=== PATIENT | male | born 1940 | race Caucasian/White ===

== ENCOUNTER → 2016-12-29 | Outpatient (CLI) | payer OTHER ==
[~2016-12-29] VITALS: Ht 177.8 cm; Wt 76.7 kg
[~2016-12-29] MED LIST: ATEN25TA PO; FLOM5CAP PO; LIDOCAINE VISCOUS 2% SOLN 15ML UDC As Ordered ONE; MIDAZOLAM INJ 2 MG/2 ML VIAL (J2250) As Ordered ONE; NS 1,000 ML IV SCH; XARE10TA PO; fentaNYL 100 MCG/2 ML INJECTION (J3010) As Ordered ONE; hydrALAZINE INJ 20 MG/ML VIAL As Ordered ONE
[2016-12-29 10:13] VITALS: BP 132/77
--- NOTE | 2016-12-30 09:15 | RO ---
DATE OF STUDY: 12/29/2016 INDICATION: Mitral insufficiency. PROCEDURE: Transesophageal echocardiogram. SURGEON: Dai Paul MD BRIEF HISTORY: Mr. Locke is very pleasant 76-year-old man who has known chronic atrial fibrillation and also known combined aortic and mitral valve disease. Based on transthoracic echocardiogram, the mitral valve insufficiency did not look particularly severe, but the orientation of MR jet was very eccentric; and consequently, it was my feeling that he may have potentially severe mitral insufficiency. He has been complaining about gradually progressive exertional dyspnea; and consequently, we decided to proceed with transesophageal echocardiogram (CYNTHIA). I explained the nature of the procedure prior to his scheduled date. He did sign appropriate consent. He presented for the procedure in fasting condition. PROCEDURE NOTE: The study was performed in endoscopy suite. The patient was positioned in standard fashion. Time-out was obtained. His posterior pharynx was anesthetized using viscous lidocaine and Cetacaine spray. He was sedated with total 4 mg of intravenous (IV) Versed and 25 mcg of IV fentanyl. When appropriate level sedation was accomplished, probe was introduced into the esophagus and later stomach without difficulty in left lateral position. After appropriate images were obtained, it was withdrawn. There were no immediate complications, and the patient tolerated the procedure well. FINDINGS: Left ventricle has normal systolic function. Of note, the patient is in atrial fibrillation during the study. Right ventricle also appears to be normally contractile. There is severe biatrial enlargement. Left atrial appendage is large and free of thrombus. There is no convincing systolic flow reversal in left-sided or right-sided pulmonary veins based on a pulse wave Doppler. By color Doppler imaging, there appears to be at least some flow into the right-sided pulmonary veins during systole. Atrial septum demonstrates a small patent foramen ovale (PFO) with [id number]-gdffw shunt that was well demonstrated by color Doppler imaging. There is no evidence for [id number] shunt based on injection of agitated saline. Pulmonic valve was poorly visualized. There is approximately mild pulmonic insufficiency. Tricuspid valve appears normal. Only minimal tricuspid insufficiency seen. Calculated pulmonary artery pressure is normal based on fair quality Doppler imaging. Aortic valve is tricuspid. It looks structurally intact with only minimal sclerosis. No stenosis is noted. Mobility is fully preserved. There is approximately mild or maybe mild to moderate insufficiency of the valve. Mitral valve has normal mobility. There is a prolapse of anterior mitral leaflet; and on a few images, it appears that there is a rupture of some small cord. By color Doppler imaging, there is severe mitral insufficiency with several MR jets. Some of them are oriented centrally, but one of them is very eccentric. Consequently, the evaluation of severity is somewhat subjective, but based on color Doppler imaging, I am convinced that there is severe mitral insufficiency. No pericardial effusion is noted. Thoracic aorta exhibits prominent atherosclerosis, but there are no large ulcers and no dissection. CONCLUSIONS: 1. Preserved left ventricle (LV) systolic function. 2. 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 3. Fsjt-ev-aerlglha aortic insufficiency. 4. Patent foramen ovale with mqui-gw-zfynf shunt. 5. Atherosclerosis of thoracic aorta. PLAN: Is to pursue coronary angiogram and right- and left-sided heart catheterization with referral for mitral valve repair likely to follow. I discussed this extensively with the patient, his , and his daughter.
== END | disposition home or self-care (01) ==
LOC: M OPP 07:50
PROVIDERS: ATTEND Internal Medicine Cardiovascular Disease
DX: I34.1 Nonrheumatic mitral (valve) prolapse (principal); I35.1 Nonrheumatic aortic (valve) insufficiency; I25.10 Atherosclerotic heart disease of native coronary artery without angina pectoris; I10 Essential (primary) hypertension; Z97.8 Presence of other specified devices; I48.91 Unspecified atrial fibrillation; R06.09 Other forms of dyspnea; N40.1 Benign prostatic hyperplasia with lower urinary tract symptoms; Z79.899 Other long term (current) drug therapy
CPT/HCPCS: 93312; 93320; 93325; J2250; J3010

== ENCOUNTER 2020-12-19 11:08 | Observation (INO) | payer MEDICARE ==
[~2020-12-19] VITALS: Ht 177.8 cm; Wt 77.7 kg
[~2020-12-19 11:08] MED LIST changes: +FLOM0.4C39 PO; -FLOM5CAP PO; -LIDOCAINE VISCOUS 2% SOLN 15ML UDC As Ordered ONE; -MIDAZOLAM INJ 2 MG/2 ML VIAL (J2250) As Ordered ONE; -NS 1,000 ML IV SCH; -fentaNYL 100 MCG/2 ML INJECTION (J3010) As Ordered ONE; -hydrALAZINE INJ 20 MG/ML VIAL As Ordered ONE
[2020-12-19] MEDS ORDERED: ATOR1TAB21 PO (11:23)
[2020-12-19] MEDS ORDERED: WARF-58 PO (11:23)
[2020-12-19] MEDS ORDERED: FURO40TA2 PO (11:23)
[2020-12-19] MEDS ORDERED: WARF4TAB52 PO (11:23)
[2020-12-19] MEDS ORDERED: FAMO40TA3 PO (11:23)
[2020-12-19] MEDS ORDERED: TAMS1CAP17 PO (11:23)
--- NOTE | 2020-12-19 11:53 | REP ---
INDICATION: Syncope COMPARISON: None. TECHNIQUE: Axial noncontrast images from the skull base to the thoracic inlet with coronal reformations. This CT examination was performed using the following dose reduction techniques: Automated exposure control, adjustment of mA and/or kv according to the patient's size, and use of iterative reconstruction technique. FINDINGS: Age-related atrophy and microvascular ischemic changes are appreciated. The ventricles and sulci are symmetric. Morfin-white differentiation is maintained. There is no evidence for acute intracranial hemorrhage, mass/mass effect, pathology or infarction. No extra-axial fluid collection. Calvarium is intact. Paranasal sinuses and mastoid air cells are clear. IMPRESSION: Age related atrophy and microvascular ischemic changes. No acute intracranial hemorrhage, infarction, or mass/mass effect. <Electronically signed by Douglas Valera > 12/19/20 [id number]
[2020-12-19 12:37] LABS: BASO % 0.7 % (0.0-1.0); EOS # 0.1 10^3/uL (0.0-0.5); EOS % 1.6 % (0.0-3.0); HEMATOCRIT 29.4 % (42.0-52.0); HEMOGLOBIN 9.6 g/dl (13.5-17.5); LYMPH # 1.2 10^3/uL (1.5-5.0); LYMPH % 20.5 % (24.0-44.0); MEAN CORPUSCULAR HEMOGLOBIN 31.6 pg (27.0-33.0); MEAN CORPUSCULAR HGB CONC 32.7 g/dl (32.0-36.5); MEAN CORPUSCULAR VOLUME 96.7 fl (80.0-96.0); MONO # 0.7 10^3/uL (0.0-0.8); MONO % 12.5 % (2.0-8.0); NEUTROPHILS # 3.6 10^3/uL (1.5-8.5); NEUTROPHILS % 64.3 % (36.0-66.0); PLATELET COUNT, AUTOMATED 169 10^3/uL (150-450); RED BLOOD COUNT 3.04 10^6/uL (4.30-6.10); WHITE BLOOD COUNT 5.6 10^3/uL (4.0-10.0)
[2020-12-19 12:52] LABS: INR 2.42; PROTHROMBIN TIME 26.9 SECONDS (12.5-14.3)
[2020-12-19 12:53] LABS: PARTIAL THROMBOPLASTIN TIME 38.3 SECONDS (24.2-38.5)
[2020-12-19 13:07] LABS: BLOOD UREA NITROGEN 24 MG/DL (7-18); CALCIUM LEVEL 8.5 MG/DL (8.8-10.2); CARBON DIOXIDE LEVEL 34 MEQ/L (21-32); CHLORIDE LEVEL 102 MEQ/L (98-107); CK-MB VALUE MASS < 1.0 NG/ML (<3.6); CPK CREATINE PHOSPHOKINASE 63 U/L (39-308); CREATININE FOR GFR 1.13 MG/DL (0.70-1.30); GLOMERULAR FILTRATION RATE > 60.0 (>35); GLUCOSE, FASTING 88 MG/DL (70-100); MB/CK RELATIVE INDEX 1.59 (< OR =4); NT-PRO BNP 2031 PG/ML (<450); POTASSIUM SERUM 3.6 MEQ/L (3.5-5.1); SODIUM LEVEL 141 MEQ/L (136-145); TROPONIN I < 0.02 NG/ML (< 0.10)
--- NOTE | 2020-12-19 14:00 | REP ---
INDICATION: SOB COMPARISON: None. TECHNIQUE: Portable AP view of the chest FINDINGS: Cardiomegaly and evidence for prior sternotomy and CABG. Lung ballesteros are clear. No consolidation, effusion, or pneumothorax. Skeletal structures intact. IMPRESSION: Cardiomegaly. No focal consolidation or effusion. <Electronically signed by Douglas Valera > 12/19/20 [id number]
[2020-12-19] MEDS ORDERED: ISOVUE-370 76% 100ML VIAL As Ordered ONE (14:33)
--- NOTE | 2020-12-19 15:01 | REP ---
INDICATION: SOB; r/o PE COMPARISON: None. TECHNIQUE: Axial contrast enhanced images from the thoracic inlet to the upper abdomen using pulmonary embolus technique with multiplanar re-formations. 75 ml Isovue 370 intravenous contrast material administered without complication. This CT examination was performed using the following dose reduction techniques: Automated exposure control, adjustment of mA and/or kv according to the patient's size, and use of iterative reconstruction technique. FINDINGS: Satisfactory enhancement of the pulmonary vasculature is achieved and no filling defects are identified to suggest pulmonary embolus. Further evaluation of the mediastinum demonstrates atherosclerotic changes to the thoracic aorta without aneurysm or obvious dissection. Cardiomegaly is appreciated along with evidence for prior mitral valve repair and atherosclerotic changes to the coronary arteries. No pericardial effusion. The bilateral lung ballesteros are well aerated and clear without consolidation pleural effusion or pneumothorax. Tracheobronchial tree is patent. No significant nodule or mass lesion is identified. Incidental calcified granuloma in the right lower lobe noted. No adenopathy noted. Surrounding musculoskeletal structures intact IMPRESSION: No evidence for pulmonary embolus. No acute mediastinal or pleural parenchymal process. Cardiomegaly. <Electronically signed by Douglas Valera > 12/19/20 [id number]
[2020-12-19 16:17] LABS: APPEARANCE, URINE CLEAR (CLEAR); BACTERIA, URINE AUTO NEGATIVE (NEGATIVE); BILIRUBIN, URINE AUTO NEGATIVE (NEGATIVE); BLOOD, URINE BLOOD 1+ (NEGATIVE); COLOR, URINE STRAW (YELLOW); GLUCOSE, URINE (UA) AUTO NEGATIVE (NEGATIVE); KETONE, URINE AUTO NEGATIVE (NEGATIVE); LEUKOCYTE ESTERASE, URINE AUTO NEGATIVE (NEGATIVE); NITRITE, URINE AUTO NEGATIVE (NEGATIVE); PROTEIN, URINE AUTO NEGATIVE (NEGATIVE); RBC, URINE AUTO 1 /HPF (0-3); SPECIFIC GRAVITY URINE AUTO 1.028 (1.002-1.035); SQUAMOUS EPITHELIAL CELL UR AU 0 /HPF (0-6); UROBILINOGEN, URINE AUTO 0.2 mg/dL (0.0-2.0); WBC, URINE AUTO 0 /HPF (0-3)
[2020-12-19] MEDS ORDERED: NS 500 ML IV ONE (16:50)
[2020-12-19] MEDS ORDERED: NS 1,000 ML IV SCH (16:50)
[2020-12-19] MEDS ORDERED: WARFARIN SOD 4MG TAB PO SCH (17:00)
[2020-12-19] MEDS ORDERED: FINA5TAB2 PO (17:32)
[2020-12-19] MEDS ORDERED: METO1TAB32 PO (17:32)
[2020-12-19] MEDS ORDERED: ACETAMINOPHEN TAB 650MG DOSE (2X325MG) PO PRN (17:35)
[2020-12-19] MEDS ORDERED: WARFARIN SOD 5MG TAB PO SCH (17:35)
[2020-12-19 17:39] LABS: RSV AMPLIFICATION NEGATIVE (NEGATIVE)
[2020-12-19] MEDS ORDERED: ATORVASTATIN 20 MG TAB PO SCH (18:00)
[2020-12-19] MEDS ORDERED: FAMOTIDINE 20 MG TAB PO SCH (18:00)
--- NOTE | 2020-12-19 18:12 | HPEPDOC ---
[facility] Medical History & Physical Date of Admission December 19, 2020 Date of Service: December 19, 2020 Attending Physician: MARYAN VITALE MD History and Physical CHIEF COMPLAINT: SOB, dizziness with position change HISTORY OF PRESENT ILLNESS: 80 yo M with a history of CAD s/p 2 vessel CABG + porcine mitral valve replacement on warfarin, chronic Afib, CHF unclear subtype at this time, patient of Dr. Paul, HTN, HLD, BPH, recently seeing Dr. Beltran for episodic hematuria who presented to the ED for SOB and dizziness with position changes for 2 days. In the ED he was hemodynamically stable, in Afib, rate controlled well, saturating well on room air. EKG showed Afib without ST segment changes, troponin was negative, telemetry has been shorting rate controlled Afib with rates in the high 50s to 60s, WBC 5.6, Hgb 9.6 (but do not have other labs to compare at this time), platelets 169, Na 141, K 3,6, BUN 24, Cr 1.13, INR 2.42, proBNP 2030, while CXR was grossly unremarkable and CTA chest showed clear lung ballesteros, cardiomegaly and no pulmonary emboli. He was mildly orthostatic and was given 500cc bolus of fluid and started on fluids at 125cc/hr. On ROS, he denied an recent fever, chills, some night sweating but no drenching night sweats, no chest pain, palpitations, abdominal pain, peripheral edema, recent travel, sick contacts, N/V/D/constipation, dysuria. He does report some episodic farzad hematuria that Dr. Beltran is working up outpatient. 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 Paul, HTN, HLD, BPH, recently seeing Dr. 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 REVIEW OF SYSTEMS: 10 point ROS was negative except as noted in the HPI. HOME MEDICATIONS: Please see below. PHYSICAL EXAMINATION: VITAL SIGNS: see below GENERAL APPEARANCE: Elderly, NAD HEENT: NCAT, EOMI, MMM CARDIOVASCULAR: Systolic murmur, irregularly irregular LUNGS: CTAB throughout ABDOMEN: normoactive sounds, soft, NTND EXTREMITIES: WWP, no LE edema, 2+ DP pulses NEUROLOGICAL: AOx3, CN2-12 intact, moving all extremities, grossly nonfocal. PSYCHIATRIC: AOx3 LABORATORY DATA and IMAGING: summarized above. Please see below for full details MICROBIOLOGY: Please see below. ASSESSMENT: 80 yo M with a history of CAD s/p 2 vessel CABG + porcine mitral valve repl acement on warfarin, chronic Afib, CHF unclear subtype at this time, patient of Dr. Paul, HTN, HLD, BPH, recently seeing Dr. Beltran for episodic hematuria who presented to the ED for SOB and dizziness with position changes for 2 days and found to have mild anemia though chronicity is unclear and Hgb of 9.6 would unlikely produce dizziness and SOB to his degree and also orthostatic with possible dehydration despite elevated proBNP as he is clinically euvolemic. PLAN: SOB, dizziness with orthostasis: -No vertigo, associated with position change and noted orthostatic vitals -got 500cc in the ED of NS and now on 125cc/hr for 8 hours -repeat orthostatics in the morning -telemetry -will order TTE with none in the EMR and history of CHF on home lasix with elevated proBNP yet euvolemic with clear clear chest -No PE or PNA on CTA -hold ACEi and borderline bradycardic, will reduce metop 25 BID tartrate to 25 QD succinate -PT/OT -fall precautions -No evidence of ACS per non-ischemic EKG, negative trop -strict I/Os -daily weights Chronic Afib: -continue warfarin -continue metop at reduced dose per above -on telemetry HTN: -hold ACEi, reduce metop 25 BID to daily per above CHF, subtype unclear at this time -hold home lasix while dizzy and orthostatic -hold ACEi, reduce metop per above -TTE Procine mitral valve: -continue daily warfarin -check INR daily Episodic hematuria: -Will call Dr. Beltran to get perspective of history and findings so far before decision to officially consult Anemia: -check Fe, TIBC, B12, folate, retic -daily H/H DVT ppx: warfarin Dispo: medsurg, with remote tele Vital Signs Vital Signs Date Time Temp Pulse Resp B/P (MAP) Pulse Ox O2 Delivery O2 Flow Rate FiO2 5/28/21 17:08 50 99 12/19/20 17:01 117/53 (74) 12/19/20 14:53 16 Room Air 12/19/20 11:10 96.6 Laboratory Data Labs 24H Laboratory Tests 2 12/19/20 12:18: Immature Granulocyte % (Auto) 0.4, Neutrophils (%) (Auto) 64.3, Lymphocytes (%) (Auto) 20.5L, Monocytes (%) (Auto) 12.5H, Eosinophils (%) (Auto) 1.6, Basophils (%) (Auto) 0.7, Neutrophils # (Auto) 3.6, Lymphocytes # (Auto) 1.2L, Monocytes # (Auto) 0.7, Eosinophils # (Auto) 0.1, Basophils # (Auto) 0.0, Nucleated Red Blood Cells % (auto) 0.0, Prothrombin Time 26.9H, Prothromb Time International Ratio 2.42, Activated Partial Thromboplast Time 38.3, Anion Gap 5L, Glomerular Filtration Rate > 60.0, Calcium Level 8.5L, Total Creatine Kinase 63, Creatine Kinase MB < 1.0, Creatine Kinase MB Relative Index 1.59, Troponin I < 0.02, PY-Jta-Q-Type Natriuretic Peptide 2031H, Thyroid Stimulating Hormone (TSH) 1.400 12/19/20 16:01: Urine Color STRAW, Urine Appearance CLEAR, Urine pH 7.0, Urine Specific [place] 1.028, Urine Protein NEGATIVE, Urine Glucose (Auto)(UA) NEGATIVE, Urine Ketones (Auto) NEGATIVE, Urine Blood 1+H, Urine Nitrite NEGATIVE, Urine Bilirubin NEGATIVE, Urine Urobilinogen 0.2, Urine Leukocyte Esterase (Auto) NEGATIVE, Urine WBC (Auto) 0, Urine RBC (Auto) 1, Urine Hyaline Casts (Auto) 0, Urine Bacteria (Auto) NEGATIVE, Urine Squamous Epithelial Cells 0, Urine Sperm (Auto) 12/19/20 16:27: Coronavirus (COVID-19)(PCR) NEGATIVE, Influenza Type A (RT-PCR) NEGATIVE, Influenza Type B (RT-PCR) NEGATIVE, Respiratory Syncytial Virus (PCR) NEGATIVE CBC/BMP Laboratory Tests 12/19/20 12:18 Home Medications Scheduled Atorvastatin Calcium (Atorvastatin Calcium) 20 Mg Tablet, 20 MG PO DAILY AFTERNOON Famotidine (Famotidine) 40 Mg Tablet, 40 MG PO DAILY AFTERNOON Finasteride (Finasteride) 5 Mg Tablet, 5 MG PO DAILY Furosemide (Furosemide) 40 Mg Tablet, 40 MG PO DAILY Metoprolol Succinate (Metoprolol Succinate) 25 Mg Tab.er.24h, 25 MG PO BID Tamsulosin HCl (Flomax) 0.4 Mg Cap, 0.4 MG PO DAILY Warfarin Sodium (Warfarin Sodium) 3 Mg Tablet, 3 MG PO DAILY TAKE WITH 1MG. TOTAL OF 4MG DAILY Warfarin Sodium (Warfarin Sodium) 1 Mg Tablet, 1 MG PO DAILY TAKE WITH 3MG. TOTAL OF 4MG DAILY Allergies Coded Allergies: No Known Allergies (Unverified , 12/27/16) A-FIB/CHADSVASC A-FIB History Current/History of A-Fib/PAF?: Yes Current PO Anticoag Therapy: Yes Age/Risk Factor Scoring CHADSVASC: CHADSVASC Response (Comments) Value Age Risk Factor Age >/= 75 years old 2 Gender Risk Factor Male 0 Hx of CHF Yes 1 Hx of HTN Yes 1 Hx of Stroke/TIA/or VTE No 0 Hx of Diabetes No 0 Total 4 Treatment Treatment ordered: Warfarin MARYAN VITALE MD December 19, 2020 18:12
[2020-12-19 20:12] VITALS: BP 129/65
[2020-12-19] MEDS ORDERED: FINASTERIDE 5 MG TAB PO SCH (21:00)
[2020-12-20 06:00] VITALS: BP 120/58
[2020-12-20 06:41] LABS: HEMOGLOBIN 8.3 g/dl (13.5-17.5); MEAN CORPUSCULAR HEMOGLOBIN 31.3 pg (27.0-33.0); MEAN CORPUSCULAR HGB CONC 31.9 g/dl (32.0-36.5); MEAN CORPUSCULAR VOLUME 98.1 fl (80.0-96.0); PLATELET COUNT, AUTOMATED 138 10^3/uL (150-450); RED BLOOD COUNT 2.65 10^6/uL (4.30-6.10); WHITE BLOOD COUNT 4.3 10^3/uL (4.0-10.0)
[2020-12-20 06:55] LABS: INR 2.43
[2020-12-20 07:26] LABS: BLOOD UREA NITROGEN 21 MG/DL (7-18); CALCIUM LEVEL 7.9 MG/DL (8.8-10.2); CARBON DIOXIDE LEVEL 30 MEQ/L (21-32); CHLORIDE LEVEL 110 MEQ/L (98-107); CREATININE FOR GFR 0.96 MG/DL (0.70-1.30); GLOMERULAR FILTRATION RATE > 60.0 (>35); GLUCOSE, FASTING 90 MG/DL (70-100); MAGNESIUM LEVEL 2.3 MG/DL (1.8-2.4); SODIUM LEVEL 143 MEQ/L (136-145)
--- NOTE | 2020-12-20 08:50 | ECGEPIP ---
[facility] - ED Test Date: 2020-12-19 Pat Name: MARIBEL GRIFFITH Department: Room: - Gender: Male Director Of Sales Marketing: evelina : 1940 Requested By: Felecia Garcia Order Number: [id number] Reading MD: Felecia Garcia Measurements Intervals [place] Rate: 64 P: [place]: QRS: -5 QRSD: 96 T: 19 QT: 442 QTc: 455 Interpretive Statements Atrial fibrillation Inferior infarct , age undetermined prwp NSTTW abnormalities No prior Electronically Signed on 12-20-2020 8:50:06 EDT by Felecia Garcia
[2020-12-20] MEDS ORDERED: METOPROLOL SUCC *XL* 25MG TAB (TopROL *XL*) PO SCH (09:00)
[2020-12-20] MEDS ORDERED: TAMSULOSIN 0.4 MG CAP PO SCH (09:00)
[2020-12-20] MEDS ORDERED: METO1TAB32 PO (10:21)
[2020-12-20] MEDS ORDERED: FURO40TA2 PO (11:12)
--- NOTE | 2020-12-20 11:21 | DS.PDOC ---
Discharge Summary General Date of Admission December 19, 2020 at 17:35 Date of Discharge 12/20/2020 Attending Physician: MARYAN VITALE MD Discharge Summary PROCEDURES PERFORMED DURING STAY: None ADMITTING DIAGNOSES: Dyspnea Orthostasis Weakness DISCHARGE DIAGNOSES: Dizziness with orthostasis i/s/o dehydration and low hydration intake Likely symptomatic bradycardia i/s/o simran blockage therapy with noted transient pauses Anemia likely with element of nutritional deficiency, likely NEIL i/s/o episodic hematuria Chronic Afib Mitral valvulopathy s/p remote porcine valve replacement on warfarin CAD s/p remote 2v CABG HTN chronic CHF, unclear subtype at time of discharge HTN HLD BPH Chronic intermittent hematuria COMPLICATIONS/CHIEF COMPLAINT: Dyspnea,Orthostasis,Weakness. 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 Paul, HTN, HLD, BPH, recently seeing Dr. Beltran for episodic hematuria who presented to the ED for SOB and dizziness with position changes for 2 days. HOSPITAL COURSE: In the ED he was hemodynamically stable, in Afib, rate controlled well, saturating well on room air. EKG showed Afib without ST segment changes, troponin was negative, telemetry showed rate controlled Afib with rates in the high 50s to 60s, WBC 5.6, Hgb 9.6 (without any prior noted labs to compare to), platelets 169, Na 141, K 3,6, BUN 24, Cr 1.13, INR 2.42, proBNP 2030, while CXR was grossly unremarkable and CTA chest showed clear lung ballesteros, cardiomegaly and no pulmonary emboli. He was orthostatic and was given 500cc bolus of fluid and started on fluids at 125cc/hr. On ROS, he denied an recent fever, chills, some night sweating but no drenching night sweats, no chest pain, palpitations, abdominal pain, peripheral edema, recent travel, sick contacts, N/V/D/constipation, dysuria. He does report some episodic farzad hematuria that Dr. Beltran is working up outpatient. Overnight he was noted to be bradycardic while in A fib and had 3 separate, asymptomatic 2 sec pauses. I called Dr. Jessica who was covering cardiology and we agreed that I would reduce his toprol from 50mg QD to 25 mg Q48H and he was safe to discharge home if all other matters were stable and would follow up in cardiology promptly. With regard to the orthostasis, it resolved after hydration and his dizziness also resolved. His Hgb went down, likely dilutional to 8.3 but day 2 AM without noted hematuria during this admission. His anemia studies are pending. He had a repeat official EKG that continued to show Afib, rate controlled with a rate of 67 without noted heart block. He is now being discharged home with plan for prompt cardiology and PCP follow up. I have strongly encouraged him to stay hydrated and will keep him on his furosemide 40mg PO changed from daily to Q2D. Of note TTE was ordered and performed but was not read by the time of discharge. DISCHARGE MEDICATIONS: Please see below. ALLERGIES: Please see below. PHYSICAL EXAMINATION ON DISCHARGE: VITAL SIGNS: Please see below. GENERAL APPEARANCE: Elderly, NAD HEENT: NCAT, EOMI, MMM CARDIOVASCULAR: Systolic murmur, irregularly irregular LUNGS: CTAB throughout ABDOMEN: normoactive sounds, soft, NTND EXTREMITIES: WWP, no LE edema, 2+ DP pulses NEUROLOGICAL: AOx3, CN2-12 intact, moving all extremities, grossly nonfocal. PSYCHIATRIC: AOx3 LABORATORY DATA: Please see below. IMAGING: CTA chest: Satisfactory enhancement of the pulmonary vasculature is achieved and no filling defects are identified to suggest pulmonary embolus. Further evaluation of the mediastinum demonstrates atherosclerotic changes to the thoracic aorta without aneurysm or obvious dissection. Cardiomegaly is appreciated along with evidence for prior mitral valve repair and atherosclerotic changes to the coronary arteries. No pericardial effusion. The bilateral lung ballesteros are well aerated and clear without consolidation pleural effusion or pneumothorax. Tracheobronchial tree is patent. No significant nodule or mass lesion is identified. Incidental calcified granuloma in the right lower lobe noted. No adenopathy noted. Surrounding musculoskeletal structures intact IMPRESSION: No evidence for pulmonary embolus. No acute mediastinal or pleural parenchymal process. Cardiomegaly. CXR: Cardiomegaly and evidence for prior sternotomy and CABG. Lung ballesteros are clear. No consolidation, effusion, or pneumothorax. Skeletal structures intact. IMPRESSION: Cardiomegaly. No focal consolidation or effusion. CT head: Age-related atrophy and microvascular ischemic changes are appreciated. The ventricles and sulci are symmetric. Morfin-white differentiation is maintained. There is no evidence for acute intracranial hemorrhage, mass/mass effect, pathology or infarction. No extra-axial fluid collection. Calvarium is intact. Paranasal sinuses and mastoid air cells are clear. IMPRESSION: Age related atrophy and microvascular ischemic changes. No acute intracranial hemorrhage, infarction, or mass/mass effect. PROGNOSIS: Good ACTIVITY: As tolerated DIET: Regular DISCHARGE PLAN: Home with close cardiology and PCP follow up DISPOSITION: Home DISCHARGE INSTRUCTIONS: Reduce metoprolol succinate from 50mg QD to 25 Q48H and closely follow up with cardiology, PCP and urology. ITEMS TO FOLLOWUP ON ON OUTPATIENT: Bradycardia with episodic transient pauses on beta gricelda therapy Dehydration, however with a history of CHF on lasix, reduced to 40mg Q48H Episodic hematuria - follows with urology Anemia DISCHARGE CONDITION: Stable TIME SPENT ON DISCHARGE: 34 minutes. Vital Signs/I&Os Vital Signs Date Time Temp Pulse Resp B/P (MAP) Pulse Ox O2 Delivery O2 Flow Rate FiO2 12/20/20 06:00 98.0 62 20 120/58 (78) 95 Room Air l I&O- Last 24 Hours up to 6 AM 12/20/20 06:00 Intake Total 775 ml Output Total 320 ml Balance 455 ml Laboratory Data Labs 24H Laboratory Tests 2 12/19/20 12:18: Immature Granulocyte % (Auto) 0.4, Neutrophils (%) (Auto) 64.3, Lymphocytes (%) (Auto) 20.5L, Monocytes (%) (Auto) 12.5H, Eosinophils (%) (Auto) 1.6, Basophils (%) (Auto) 0.7, Neutrophils # (Auto) 3.6, Lymphocytes # (Auto) 1.2L, Monocytes # (Auto) 0.7, Eosinophils # (Auto) 0.1, Basophils # (Auto) 0.0, Nucleated Red Blood Cells % (auto) 0.0, Prothrombin Time 26.9H, Prothromb Time International Ratio 2.42, Activated Partial Thromboplast Time 38.3, Anion Gap 5L, Glomerular Filtration Rate > 60.0, Calcium Level 8.5L, Total Creatine Kinase 63, Creatine Kinase MB < 1.0, Creatine Kinase MB Relative Index 1.59, Troponin I < 0.02, CU-Jxd-T-Type Natriuretic Peptide 2031H, Thyroid Stimulating Hormone (TSH) 1.400 12/19/20 16:01: Urine Color STRAW, Urine Appearance CLEAR, Urine pH 7.0, Urine Specific [place] 1.028, Urine Protein NEGATIVE, Urine Glucose (Auto)(UA) NEGATIVE, Urine Ketones (Auto) NEGATIVE, Urine Blood 1+H, Urine Nitrite NEGATIVE, Urine Bilirubin NEGATIVE, Urine Urobilinogen 0.2, Urine Leukocyte Esterase (Auto) NEGATIVE, Urine WBC (Auto) 0, Urine RBC (Auto) 1, Urine Hyaline Casts (Auto) 0, Urine Bacteria (Auto) NEGATIVE, Urine Squamous Epithelial Cells 0, Urine Sperm (Auto) 12/19/20 16:27: Coronavirus (COVID-19)(PCR) NEGATIVE, Influenza Type A (RT-PCR) NEGATIVE, Influenza Type B (RT-PCR) NEGATIVE, Respiratory Syncytial Virus (PCR) NEGATIVE 12/20/20 06:12: Nucleated Red Blood Cells % (auto) 0.0, Prothrombin Time 27.0H, Prothromb Time International Ratio 2.43, Anion Gap 3L, Glomerular Filtration Rate > 60.0, Calcium Level 7.9L, Magnesium Level 2.3 CBC/BMP Laboratory Tests 12/19/20 12:18 12/20/20 06:12 Discharge Medications Scheduled Atorvastatin Calcium (Atorvastatin Calcium) 20 Mg Tablet, 20 MG PO DAILY, (Reported) AFTERNOON Famotidine (Famotidine) 40 Mg Tablet, 40 MG PO DAILY, (Reported) AFTERNOON Finasteride (Finasteride) 5 Mg Tablet, 5 MG PO DAILY, (Reported) Furosemide (Furosemide) 40 Mg Tablet, 40 MG PO DAILY, (Reported) Metoprolol Succinate (Metoprolol Succinate) 25 Mg Tab.er.24h, 25 MG PO Q2D Tamsulosin HCl (Flomax) 0.4 Mg Cap, 0.4 MG PO DAILY, (Reported) Warfarin Sodium (Warfarin Sodium) 3 Mg Tablet, 3 MG PO DAILY, (Reported) TAKE WITH 1MG. TOTAL OF 4MG DAILY Warfarin Sodium (Warfarin Sodium) 1 Mg Tablet, 1 MG PO DAILY, (Reported) TAKE WITH 3MG. TOTAL OF 4MG DAILY Allergies Coded Allergies: No Known Allergies (Unverified , 12/27/16) MARYAN VITALE MD December 20, 2020 11:21
[2020-12-20 11:31] LABS: FERRITIN 73 NG/ML (26-388); IRON (FE) 44 UG/DL (65-175); PERCENT SATURATION 16.8 % (19.7-50.0); TOTAL IRON BINDING CAPACITY 262 UG/DL (250-450)
[2020-12-20] MEDS ORDERED: FERR325T3 PO (14:47)
--- NOTE | 2020-12-20 17:13 | ECGEPIP ---
[facility] Test Date: 2020-12-20 Pat Name: MARIBEL GRIFFITH Department: Room: [place] [address] Gender: Male Keyboard Teacher: ARIEL : 1940 Requested By: MARYAN Staples Order Number: [id number] Reading MD: Umesh Valero Measurements Intervals [place] Rate: 53 P: [place]: QRS: -5 QRSD: 96 T: 5 QT: 440 QTc: 412 Interpretive Statements Atrial fibrillation with slow ventricular response Low voltage QRS throughout Incomplete right bundle branch block Possible inferior infarct , age undetermined No significant change when compared to prior tracing of 12/19/2020 Electronically Signed on 12-20-2020 17:12:55 EDT by Umesh Valero
--- NOTE | 2020-12-23 09:51 | ECHO ---
ECHOCARDIOGRAM DATE OF PROCEDURE: 12/20/2020 Age: 80 Gender: Male Height: Not recorded Weight: Not recorded PATIENT LOCATION: Inpatient [address] [place], Room 4220. REFERRING PHYSICIAN: Claire Lagunas M.D. INDICATION: Presyncope/atrial fibrillation/mitral valve replacement. MEASUREMENTS: 2D Measurements: RV 5.4 cm LV 5.5 cm Septum 1.1 cm Posterior wall 1.1 cm Aortic Root 3.6 cm Ascending aorta 3.7 cm LA 5.7 cm LVEF 45% Doppler Measurements: AV 1.46 m/s LVOT 1.25 m/s LVOT diameter 2.3 cm MV-E 202 Pressure halftime 95 msec Mean MV diastolic gradient 7 mmHg MVA 2.3 cm2 PV 0.7 m/s Pulmonary artery acceleration time 71 msec RVSP 71 mmHg IVC 2.0 cm COMMENTS: Underlying atrial fibrillation with controlled ventricular response. No intraventricular conduction disturbance. M-mode and two-dimensional echocardiography was performed with pulse, continuous wave, color flow, and tissue Doppler studies. Left ventricular size upper limits of normal with normal wall thickness. Septal wall motion abnormality believed to be related to right ventricular pressure overload. Other left ventricular wall segments appear to be move normally. Prominently dilated left atrium (unable to comment on LV diastolic function in light of mitral valve disorder). Prominently dilated right heart chambers with right ventricular free wall hypokinesis and Doppler evidence of severe pulmonary hypertension. IVC size upper limits of normal in size with absent respiratory collapse in keeping with an elevated central venous pressure. Normal aortic diameters. Moderate aortic valvular sclerosis without stenosis, but moderately severe insufficiency. Bioprosthetic mitral valve with adequate cusp separation and no apparent insufficiency. Doppler assessment confirms appropriate bioprosthetic function. Normal appearing tricuspid valve with moderately severe to severe insufficiency. No apparent intracardiac mass or pericardial effusion. MTDD
[2020-12-23 10:35] LABS: FOLATE 9.9 NG/ML; VITAMIN B12 LEVEL 251 PG/ML
== END 2020-12-20 14:25 | disposition home or self-care (01) ==
LOC: M ED 11:08 → M ED INP 17:35 → ENRESERV 19:39 → M MSPAV 20:10
PROVIDERS: ADMIT Internal Medicine; ATTEND Internal Medicine
DX: R42 Dizziness and giddiness (principal); E86.0 Dehydration; R00.1 Bradycardia, unspecified; D50.9 Iron deficiency anemia, unspecified; I48.20 Chronic atrial fibrillation, unspecified; Z79.01 Long term (current) use of anticoagulants; Z79.899 Other long term (current) drug therapy; I10 Essential (primary) hypertension; I25.10 Atherosclerotic heart disease of native coronary artery without angina pectoris; Z95.1 Presence of aortocoronary bypass graft; E78.49 Other hyperlipidemia; N40.0 Benign prostatic hyperplasia without lower urinary tract symptoms; R31.0 Gross hematuria
CPT/HCPCS: 36415; 70450; 71045; 71275; 80048; 81001; 82550; 82553; 82607; 82728; 82746; 83550; 83735; 83880; 84443; 84484; 85025; 85027; 85046; 85610; 85730; 87631; 93005; 93041; 93306; 94760; 96360; 96361; 99285; G0378; Q9967

== ENCOUNTER 2021-01-12 10:42 | Inpatient (IN) | payer MEDICARE ==
[2021-01-12] VITALS (10 sets, daily range): BP systolic 91–112; BP diastolic 51–65
[~2021-01-12] VITALS: Ht 172.7 cm; Wt 77.5 kg
[~2021-01-12 10:42] MED LIST changes: +ATOR1TAB21 PO; +FAMO40TA3 PO; +FERR325T3 PO; +FINA5TAB2 PO; +FURO40TA2 PO; +METO1TAB32 PO; +TAMS1CAP17 PO; +WARF-58 PO; +WARF4TAB52 PO
--- NOTE | 2021-01-12 12:00 | REP ---
INDICATION: DYSPNEA/COUGH. COMPARISON: 12/19/2020. TECHNIQUE: Single portable AP view of the chest was performed. FINDINGS: Cardiomegaly is again noted. There is no acute infiltrate or pulmonary edema. There is mild calcification and tortuosity of the thoracic aorta. The mediastinal silhouette is unchanged. Multiple sternal wires mediastinal clips are present. IMPRESSION: No acute pulmonary disease.Cardiomegaly. <Electronically signed by Horacio Morfin > 01/12/21 [id number]
[2021-01-12 12:07] LABS: BASO % 0.4 % (0.0-1.0); EOS % 0.7 % (0.0-3.0); LYMPH # 0.9 10^3/uL (1.5-5.0); LYMPH % 15.7 % (24.0-44.0); MEAN CORPUSCULAR HEMOGLOBIN 31.3 pg (27.0-33.0); MEAN CORPUSCULAR HGB CONC 30.2 g/dl (32.0-36.5); MEAN CORPUSCULAR VOLUME 103.7 fl (80.0-96.0); MONO # 0.6 10^3/uL (0.0-0.8); MONO % 10.2 % (2.0-8.0); NEUTROPHILS # 4.1 10^3/uL (1.5-8.5); NEUTROPHILS % 72.1 % (36.0-66.0); PLATELET COUNT, AUTOMATED 175 10^3/uL (150-450); RED BLOOD COUNT 1.63 10^6/uL (4.30-6.10); WHITE BLOOD COUNT 5.6 10^3/uL (4.0-10.0)
[2021-01-12 12:13] LABS: HEMATOCRIT 16.9 % (42.0-52.0)
[2021-01-12 12:16] LABS: HEMOGLOBIN 5.1 g/dl (13.5-17.5)
[2021-01-12 12:47] LABS: ALBUMIN 2.9 GM/DL (3.2-5.2); BILIRUBIN,DIRECT 0.2 MG/DL (0.0-0.2); BILIRUBIN,TOTAL 0.3 MG/DL (0.2-1.0); THYROID STIMULATING HORMONE 1.14 uIU/ML (0.358-3.740); THYROXINE (T4) 7.5 UG/DL (4.5-12.0); TOTAL PROTEIN 5.4 GM/DL (6.4-8.2)
[2021-01-12] MEDS ORDERED: FERR1TAB8 PO (14:16)
[2021-01-12] MEDS ORDERED: ASPI81TA26 PO (14:16)
[2021-01-12] MEDS ORDERED: METO1TAB32 PO (14:16)
[2021-01-12] MEDS ORDERED: FURO40TA2 PO (14:16)
--- NOTE | 2021-01-12 15:11 | HPEPDOC ---
General Date of Admission Jan 12, 2021 Date of Service: Jan 12, 2021 Chief Complaint The patient is a 80-year-old male admitted with a reason for visit of SOB. Source: Patient, Family History of Present Illness Mr. Adler is an 80 year old male with CAD s/p 2 vessel CABG, porcine mitral valve, and atrial fibrillation previously on warfarin who is here with worsening dyspnea with exertion, lightheadedness, and dark tarry stool. Patient's says that initially patient had an episode of hematuria and was admitted 2 weeks ago for symptomatic anemia. On discharge, patient reports discontinuing Warfarin. Since discharge, patient has been having dark tarry stools, lighth eadedness with blurry vision, and dyspnea with exertion. Symptoms progressively worsened. Patient was scheduled for scopes on Tuesday, but patient was too weak to drink the bowel prep. Patient was taken to the ED for evaluation. while here, he was found to have a hemoglobin of 5.9. Otherwise, patient's vital signs have been stable. He reports lightheadedness when sitting up or standing with accompanied blurry vision. He reports dyspnea and weakness. Patient was consented to 2u of pRBC by the ED provider. I consulted general surgery, Dr. Valdez for scope. Anticipating scope for Tuesday. Patient will be admitted for suspected upper GI bleed secondary to warfarin use. Home Medications Scheduled Aspirin (Aspirin EC) 81 Mg Tablet.dr, 81 MG PO DAILY, (Reported) Atorvastatin Calcium (Atorvastatin Calcium) 20 Mg Tablet, 20 MG PO DAILY, (Reported) AFTERNOON Famotidine (Famotidine) 40 Mg Tablet, 40 MG PO DAILY, (Reported) AFTERNOON Ferrous Sulfate (Ferrous Sulfate) 325 Mg Tablet, 325 MG PO DAILY, (Reported) Finasteride (Finasteride) 5 Mg Tablet, 5 MG PO DAILY, (Reported) Furosemide (Furosemide) 40 Mg Tablet, 40 MG PO DAILY, (Reported) Metoprolol Succinate (Metoprolol Succinate) 25 Mg Tab.er.24h, 25 MG PO DAILY, (Reported) Tamsulosin HCl (Flomax) 0.4 Mg Cap, 0.4 MG PO DAILY, (Reported) Allergies Coded Allergies: No Known Allergies (Unverified , 12/27/16) Past Medical History Medical History 1. CAD s/p 2 vessel CABG 2. Porcine mitral valve 3. Chronic atrial fibrillation previously on warfarin 4. CHF with EF 45% 5. HTN 6. HLD 7. BPH Surgical History 1. 2 vessel CABG 2. Porcine mitral valve 3. Cholecystectomy Family History Father: History of heart disease Mother: History of heart disease Social History * Smoker: former Smoker Alcohol: rarely Drugs: denies A-FIB/CHADSVASC A-FIB History Current/History of A-Fib/PAF?: Yes Current PO Anticoag Therapy: Yes Review of Systems Constitutional: Denies: Chills, Fever Eyes: Reports: Other (Blurry vision when lightheaded) ENT: Denies: Sore Throat Skin: Denies: Rash Pulmonary: Reports: Dyspnea (With exertion) Cardiovascular: Reports: Lt Headedness (With standing); Denies: Chest Pain Gastrointestinal: Reports: Other Symptoms (Dark tarry stool); Denies: Abdominal Pain Genitourinary: Denies: Dysuria Hematologic: Reports: Bruising (Reports easy bruisability) Neurological: Denies: Numbness Psych: Denies: Anxiety, Depression Physical Examination General Exam: Positive: Alert, Cooperative Eye Exam: Positive: EOMI; Negative: Sclera icteric ENT Exam: Positive: Atraumatic Neck Exam: Positive: Supple Chest Exam: Positive: Clear to auscultation Heart Exam: Positive: Rate Normal, Irregular Rhythm Abdomen Exam: Positive: Normal bowel sounds, Soft; Negative: Tenderness Extremity Exam: Positive: Edema (mild bilateral pitting edema) Neuro Exam: Positive: Normal Speech, Cranial Nerves 3-12 NL Psych Exam: Positive: Mental status NL, Mood NL Vital Signs Vital Signs Date Time Temp Pulse Resp B/P (MAP) Pulse Ox O2 Delivery O2 Flow Rate FiO2 01/12/21 12:15 01/12/21 10:42 97.4 94 20 98 Room Air Laboratory Data Labs 24H Laboratory Tests 2 01/12/21 11:37: Immature Granulocyte % (Auto) 0.9, Neutrophils (%) (Auto) 72.1H, Lymphocytes (%) (Auto) 15.7L, Monocytes (%) (Auto) 10.2H, Eosinophils (%) (Auto) 0.7, Basophils (%) (Auto) 0.4, Neutrophils # (Auto) 4.1, Lymphocytes # (Auto) 0.9L, Monocytes # (Auto) 0.6, Eosinophils # (Auto) 0.0, Basophils # (Auto) 0.0, Nucleated Red Blo od Cells % (auto) 0.0, Lactic Acid Level 1.9, Total Bilirubin 0.3, Direct Bilirubin 0.2, Aspartate Amino Transf (AST/SGOT) 11, Alanine Aminotransferase (ALT/SGPT) 16, Alkaline Phosphatase 64, ZM-Jzm-M-Type Natriuretic Peptide 1225H, Total Protein 5.4L, Albumin 2.9L, Albumin/Globulin Ratio 1.2, Thyroid Stimulating Hormone (TSH) 1.140, Thyroxine (T4) 7.5 01/12/21 11:58: POC Glucose (Misc Panel) 121H, POC Sodium (Misc Panel) 140, POC Potassium (Misc Panel) 3.6, POC Chloride (Misc Panel) 95L, POC Total CO2 (Misc Panel) 28.0H, POC Blood Urea Nitrogen (Misc Panel 29H, POC Ionized Calcium (Misc Panel) 4.8, POC Creatinine (Misc Panel) 1.1, POC Hematocrit (Misc Panel) 16.0L 01/12/21 11:59: POC Troponin I (Misc) 0.00 01/12/21 14:18: CBC/BMP Laboratory Tests 01/12/21 11:37 Microbiology Microbiology 01/12/21 Respiratory Virus Panel (PCR) ([facility]) - Final, Complete 01/12/21 Blood Culture, Received Pending Assessment/Plan Mr. Adler is an 80 year old male with CAD s/p 2 vessel CABG, porcine mitral valve, and atrial fibrillation previously on warfarin who is here with worsening dyspnea with exertion, lightheadedness, and dark tarry stool. Suspecting patient has an upper GI bleed. Patient will be made NPO with BID IV Protonix and liquid Carafate. General surgery consulted for suspected upper GI bleed. Anticipate scope on Tuesday. Plan / VTE VTE Prophylaxis Ordered?: Yes Plan Plan 1. Suspected upper GI bleed // Symptomatic anemia -Patient reports dark tarry stool -Hgb 5.9 -Patient has consented for blood, transfusing 2u. Will check CBC 1 hour after to see if patient would need a 3rd transfusion -Patient on protonix IV BID and liquid Carafate -Would recommending discontinuing Carafate on day of scope 2. Persistent atrial fibrillation -Patient was on warfarin 2 weeks ago. Now discontinued. Will recheck INR -Hold Toprol XL as patient is hypotensive secondary to acute blood loss anemia 3. CHF with EF of 45% -Hold Furosemide and Toprol XL due to patient's hypotension from acute blood loss anemia 4. CAD s/p CABG -Hold aspirin due to acute GI bleed -Hold Furosemide and Toprol XL due to patient's hypotension from acute blood loss anemia -Atorvastatin not essential at this time. Hold and restart after scope 5. DVT ppx -No chemical ppx due to acute blood loss anemia -SCD and TEDs Disposition: Anticipate scope Tuesday. Bedrest for now due to severe anemia. When blood counts improve, can consider activity as tolerated with fall risk precautions NATHAN MILLER DO Jan 12, 2021 15:11
[2021-01-12 15:13] LABS: INR 1.02; PROTHROMBIN TIME 13.6 SECONDS (12.5-14.3)
[2021-01-12 15:14] LABS: PARTIAL THROMBOPLASTIN TIME 25.8 SECONDS (24.2-38.5)
--- NOTE | 2021-01-12 15:44 | ECGEPIP ---
[facility] - ED Test Date: 2021-01-12 Pat Name: MARIBEL GRIFFITH Department: Room: - Gender: Male Rough Rounder: : 1940 Requested By: Edwardo Canchola Order Number: [id number] Reading MD: Redd Henriquez Measurements Intervals [place] Rate: 73 P: [place]: QRS: 0 QRSD: 94 T: 19 QT: 400 QTc: 440 Interpretive Statements Atrial fibrillation Low voltage QRS throughout Cannot rule out Inferior infarct , age undetermined Similar to tracing done 12-20-20 but with increased rate Electronically Signed on 01-12-2021 15:44:09 EDT by Redd Henriquez
[2021-01-12] MEDS: PANTOPRAZOLE 40MG VIAL (C9113 PER 1) IV SCH (18:47)
[2021-01-12] MEDS: SUCRALFATE SUSP 1GM/10ML UD PO SCH ×2 (18:47→22:49)
[2021-01-12] MEDS ORDERED: FUROSEMIDE 20MG/2ML VIAL (J1940) IV ONE (21:00)
[2021-01-13] VITALS (11 sets, daily range): BP systolic 102–158; BP diastolic 47–72
[2021-01-13] MEDS ORDERED: FUROSEMIDE 20MG/2ML VIAL (J1940) IV ONE (01:00)
[2021-01-13] MEDS: PANTOPRAZOLE 40MG VIAL (C9113 PER 1) IV SCH ×2 (05:50→15:24)
[2021-01-13] MEDS: SUCRALFATE SUSP 1GM/10ML UD PO SCH ×3 (05:50→22:24)
[2021-01-13 07:38] LABS: HEMATOCRIT 25.3 % (42.0-52.0); MEAN CORPUSCULAR HEMOGLOBIN 29.8 pg (27.0-33.0); MEAN CORPUSCULAR HGB CONC 31.2 g/dl (32.0-36.5); MEAN CORPUSCULAR VOLUME 95.5 fl (80.0-96.0); PLATELET COUNT, AUTOMATED 161 10^3/uL (150-450); RED BLOOD COUNT 2.65 10^6/uL (4.30-6.10); WHITE BLOOD COUNT 6.1 10^3/uL (4.0-10.0)
[2021-01-13 07:41] LABS: HEMOGLOBIN 7.9 g/dl (13.5-17.5)
[2021-01-13 08:00] LABS: BLOOD UREA NITROGEN 30 MG/DL (7-18); CALCIUM LEVEL 7.6 MG/DL (8.8-10.2); CARBON DIOXIDE LEVEL 30 MEQ/L (21-32); CHLORIDE LEVEL 108 MEQ/L (98-107); CREATININE FOR GFR 0.96 MG/DL (0.70-1.30); GLOMERULAR FILTRATION RATE > 60.0 (>35); GLUCOSE, FASTING 89 MG/DL (70-100); POTASSIUM SERUM 3.9 MEQ/L (3.5-5.1); SODIUM LEVEL 141 MEQ/L (136-145)
[2021-01-13] MEDS ORDERED: MAGNESIUM CITRATE 300 ML BTL PO ONE (09:00)
[2021-01-13] MEDS ORDERED: FUROSEMIDE 20MG/2ML VIAL (J1940) IV SCH (09:00)
--- NOTE | 2021-01-13 09:14 | CR.PDOC ---
General Date of Consultation: Jan 13, [address] Valdez. HISTORY OF PRESENT ILLNESS: The patient is an 80-year-old male reporting history of dark tarry stools, lightheadedness and shortness of breath with exertion, found to have a hemoglobin of 5.9 in the emergency department and admitted for possible upper GI bleed secondary to warfarin use. The patient is on warfarin for history of atrial fibrillation, currently on hold. Gen. surgery consulted for scope. ALLERGIES: Please see below. HOME MEDICATIONS: Please see below. PAST MEDICAL HISTORY: CAD/CABG 2 Porcine mitral valve Atrial fibrillation, on warfarin CHF with EF 45 Hypertension Hyperlipidemia BPH PAST SURGICAL HISTORY: CABG 2 Porcine mitral valve Cholecystectomy FAMILY HISTORY: CAD SOCIAL HISTORY: Former smoker REVIEW OF SYSTEMS: As noted in HPI otherwise 10 point review of systems unremarkable. PHYSICAL EXAMINATION: VITAL SIGNS: Please see below. GENERAL APPEARANCE: Resting in bed comfortably, no acute distress HEENT: Moist mucous membranes RESPIRATORY: Clear to auscultation CARDIOVASCULAR: S1 and S2 irregularly irregular ABDOMEN: soft, NT EXTREMITIES: No edema. LABORATORY DATA: Please see below. ASSESSMENT/PLAN: GIB. The patient is reviewed and examined as per Dr. Valdez. Hemoglobin this morning 7.9 compared with 5.1 yesterday. Status post 3 units PRBC. Carafate 1 g every 8 hour. Protonix 40 mg IV every 12hrs. Plan is to proceed with EGD/colonoscopy tomorrow as per Dr. Valdez. The patient verbalizes understanding and agreement. Vital Signs/I&O Vital Signs Date Time Temp Pulse Resp B/P (MAP) Pulse Ox O2 Delivery O2 Flow Rate FiO2 01/13/21 06:46 98.5 60 18 102/54 98 Room Air I&O- Last 24 Hours up to 6 AM 01/13/21 05:59 Intake Total 1500 ml Output Total 600 ml Balance 900 ml Laboratory Data Labs 24H Laboratory Tests 2 01/12/21 11:37: Immature Granulocyte % (Auto) 0.9, Neutrophils (%) (Auto) 72.1H, Lymphocytes (%) (Auto) 15.7L, Monocytes (%) (Auto) 10.2H, Eosinophils (%) (Auto) 0.7, Basophils (%) (Auto) 0.4, Neutrophils # (Auto) 4.1, Lymphocytes # (Auto) 0.9L, Monocytes # (Auto) 0.6, Eosinophils # (Auto) 0.0, Basophils # (Auto) 0.0, Nucleated Red Blood Cells % (auto) 0.0, Lactic Acid Level 1.9, Total Bilirubin 0.3, Direct Bilirubin 0.2, Aspartate Amino Transf (AST/SGOT) 11, Alanine Aminotransferase (ALT/SGPT) 16, Alkaline Phosphatase 64, [address]-Type Natriuretic Peptide 1225H, Total Protein 5.4L, Albumin 2.9L, Albumin/Globulin Ratio 1.2, Thyroid Stim ulating Hormone (TSH) 1.140, Thyroxine (T4) 7.5 01/12/21 11:58: POC Glucose (Misc Panel) 121H, POC Sodium (Misc Panel) 140, POC Potassium (Misc Panel) 3.6, POC Chloride (Misc Panel) 95L, POC Total CO2 (Misc Panel) 28.0H, POC Blood Urea Nitrogen (Misc Panel 29H, POC Ionized Calcium (Misc Panel) 4.8, POC Creatinine (Misc Panel) 1.1, POC Hematocrit (Misc Panel) 16.0L 01/12/21 11:59: POC Troponin I (Misc) 0.00 01/12/21 14:18: Prothrombin Time 13.6, Prothromb Time International Ratio 1.02, Activated Partial Thromboplast Time 25.8 01/13/21 07:06: Nucleated Red Blood Cells % (auto) 0.0, Anion Gap 3L, Glomerular Filtration Rate > 60.0, Calcium Level 7.6L CBC/BMP Laboratory Tests 01/12/21 11:37 01/13/21 07:06 Microbiology Microbiology 01/12/21 Respiratory Virus Panel (PCR) ([facility]) - Final, Complete 01/12/21 Blood Culture, Received Pending Allergies Coded Allergies: No Known Allergies (Unverified , 12/27/16) Home Medications Scheduled Aspirin (Aspirin EC) 81 Mg Tablet.dr, 81 MG PO DAILY, (Reported) Atorvastatin Calcium (Atorvastatin Calcium) 20 Mg Tablet, 20 MG PO DAILY, (Reported) AFTERNOON Famotidine (Famotidine) 40 Mg Tablet, 40 MG PO DAILY, (Reported) AFTERNOON Ferrous Sulfate (Ferrous Sulfate) 325 Mg Tablet, 325 MG PO DAILY, (Reported) Finasteride (Finasteride) 5 Mg Tablet, 5 MG PO DAILY, (Reported) Furosemide (Furosemide) 40 Mg Tablet, 40 MG PO DAILY, (Reported) Metoprolol Succinate (Metoprolol Succinate) 25 Mg Tab.er.24h, 25 MG PO DAILY, (Reported) Tamsulosin HCl (Flomax) 0.4 Mg Cap, 0.4 MG PO DAILY, (Reported) Jeannie Walters Jan 13, 2021 09:14
[2021-01-13] MEDS: ATORVASTATIN 20 MG TAB PO SCH (09:28)
[2021-01-13] MEDS: TAMSULOSIN 0.4 MG CAP PO SCH (09:28)
[2021-01-13] MEDS ORDERED: GOLYTELY SOLN 4000 ML BTL PO ONE (10:00)
--- NOTE | 2021-01-13 19:14 | IPNPDOC ---
Text Note Date of Service The patient was seen on 01/13/21. NOTE Subjective: No any acute events overnight. No fever or chills. Patient tolerates bowel preparation well Objective: GENERAL APPEARANCE: NAD HEENT: no scleral icterus, no JVD, EOMI CARDIOVASCULAR: S1S2 LUNGS: CTA ABDOMEN: soft & not tender w palpitation MUSCULOSKELETAL: no cyanosis, no swelling INTEGUMENT: no generalized pallor NEUROLOGICAL: cranial nerve function from 2-12 intact intact, follows commands, speech not dysarthric Assessment and plan Patient is 80 years old male male with CAD s/p 2 vessel CABG, porcine mitral valve, and atrial fibrillation previously on warfarin who is here with worsening dyspnea with exertion, lightheadedness, and dark tarry stool. Patient was found to have hemoglobin of 5.9. GI bleed/acute blood loss anemia Patient received blood transfusion. Hemoglobin stable Continue Protonix IV and Carafate GI team will proceed with colonoscopy and EGD tomorrow Atrial fibrillation/Porcine mitral valve Heart rate is under control Oral anticoagulation on hold Acute diastolic CHF Restarted Lasix Cardiac diet Is Os CAD s/p CABG Aspirin on hold Continue statin DVT ppx No chemical ppx due to acute blood loss anemia SCD and TEDs VS,Fishbone, I+O VS, Fishbone, I+O Laboratory Tests 01/13/21 07:06 Vital Signs Date Time Temp Pulse Resp B/P (MAP) Pulse Ox O2 Delivery O2 Flow Rate FiO2 01/13/21 14:00 97.3 68 17 158/64 (95) 100 Room Air I&O- Last 24 Hours up to 6 AM 01/13/21 06:00 Intake Total 1500 ml Output Total 600 ml Balance 900 ml HARPREET HANNAH DO Jan 13, 2021 19:14
[2021-01-13] MEDS: FUROSEMIDE 40MG/4ML VIAL (J1940) IV SCH (20:00)
[2021-01-14] MEDS: PANTOPRAZOLE 40MG VIAL (C9113 PER 1) IV SCH (03:06)
[2021-01-14 06:00] VITALS: BP 108/48
[2021-01-14 07:02] LABS: HEMATOCRIT 27.3 % (42.0-52.0); HEMOGLOBIN 8.4 g/dl (13.5-17.5); MEAN CORPUSCULAR HGB CONC 30.8 g/dl (32.0-36.5); MEAN CORPUSCULAR VOLUME 97.5 fl (80.0-96.0); PLATELET COUNT, AUTOMATED 153 10^3/uL (150-450); WHITE BLOOD COUNT 5.4 10^3/uL (4.0-10.0)
[2021-01-14] MEDS ORDERED: LIDOCAINE 2% 100MG/5ML SDV (FOR ANES.) As Ordered ONE (07:11)
[2021-01-14] MEDS ORDERED: propofoL 200 MG/20 ML VIAL As Ordered ONE (07:11)
[2021-01-14 07:36] LABS: BLOOD UREA NITROGEN 28 MG/DL (7-18); CARBON DIOXIDE LEVEL 31 MEQ/L (21-32); CHLORIDE LEVEL 106 MEQ/L (98-107); CREATININE FOR GFR 1.03 MG/DL (0.70-1.30); GLOMERULAR FILTRATION RATE > 60.0 (>35); GLUCOSE, FASTING 86 MG/DL (70-100); POTASSIUM SERUM 4.2 MEQ/L (3.5-5.1); SODIUM LEVEL 140 MEQ/L (136-145)
--- NOTE | 2021-01-14 07:58 | IPNPDOC ---
Text Note Date of Service The patient was seen on 01/14/21. NOTE No acute events overnight. He tolerated the prep, and says that it is all clear with a little blood in the last one. VSSAF NAD abd - soft, nt, nd labs - below A) 80y/o male with anemia and suspected GI bleed P) NPO OR for EGD and Colon this am. Rubén Valdez DO VS,Fishbone, I+O VS, Fishbone, I+O Laboratory Tests 01/14/21 06:40 Vital Signs Date Time Temp Pulse Resp B/P (MAP) Pulse Ox O2 Delivery O2 Flow Rate FiO2 01/14/21 06:00 98.1 70 21 108/48 (68) 97 Room Air I&O- Last 24 Hours up to 6 AM 01/14/21 06:00 Intake Total 0 ml Output Total 150 ml Balance -150 ml JOSUE VALDEZ DO Jan 14, 2021 07:58
[2021-01-14] MEDS: FUROSEMIDE 40MG/4ML VIAL (J1940) IV SCH (09:00)
--- NOTE | 2021-01-14 09:56 | ROOR ---
Patient Name: Isauro Locke Procedure Date: 01/14/2021 9:13 AM Date of : 1940 Age: 80 Room: [facility] Gender: Male Note Status: Finalized Procedure: Upper GI endoscopy Indications: Melena Providers: DO Marilyn Rogers MD: 2. Inpatient 2. Inpatient Requesting Provider: Medicines: Propofol per Anesthesia Complications: No immediate complications. Procedure: Pre-Anesthesia Assessment: - Prior to the procedure, a History and Physical was performed, and patient medications and allergies were reviewed. The patient is competent. The risks and benefits of the procedure and the sedation options and risks were discussed with the patient. All questions were answered and informed consent was obtained. Patient identification and proposed procedure were verified by the physician, the nurse, the anesthesiologist and the marine propulsion technician in the endoscopy suite. Mental Status Examination: alert and oriented. Airway Examination: normal oropharyngeal airway and neck mobility. Respiratory Examination: clear to auscultation. CV Examination: normal. Prophylactic Antibiotics: The patient does not require prophylactic antibiotics. Prior Anticoagulants: The patient has taken anticoagulant medication. ASA Grade Assessment: III - A patient with severe systemic disease. After reviewing the risks and benefits, the patient was deemed in satisfactory condition to undergo the procedure. The anesthesia plan was to use monitored anesthesia care (MAC). Immediately prior to administration of medications, the patient was re-assessed for adequacy to receive sedatives. The heart rate, respiratory rate, oxygen saturations, blood pressure, adequacy of pulmonary ventilation, and response to care were monitored throughout the procedure. The physical status of the patient was re-assessed after the procedure. The Endoscope was introduced through the mouth, and advanced to the third part of duodenum. The upper GI endoscopy was accomplished without difficulty. The patient tolerated the procedure well. Findings: The Z-line was irregular. Biopsies were taken with a cold forceps for histology. Estimated blood loss was minimal. Scattered mild inflammation characterized by congestion (edema), erythema and friability was found in the prepyloric region of the stomach. Biopsies were taken with a cold forceps for Helicobacter pylori testing. Biopsies were taken with a cold forceps for histology. Estimated blood loss was minimal. Impression: - Z-line irregular. Biopsied. - Gastritis. Biopsied. Recommendation: - Patient has a contact number available for emergencies. The signs and symptoms of potential delayed complications were discussed with the patient. Return to normal activities tomorrow. Written discharge instructions were provided to the patient. - Await pathology results. Procedure Code(s): --- Professional --- 31063, Esophagogastroduodenoscopy, flexible, transoral; with biopsy, single or multiple Diagnosis Code(s): --- Professional --- K22.8, Other specified diseases of esophagus K29.70, Gastritis, unspecified, without bleeding K92.1, Melena (includes Hematochezia) CPT copyright 2019 [employer]. All rights reserved. The codes documented in this report are preliminary and upon top coater review may be revised to meet current compliance requirements. Horacio Valdez DO 01/14/2021 9:55:57 AM Electronically signed by Horacio Valdez DO Number of Addenda: 0 Note Initiated On: 01/14/2021 9:13 AM Estimated Blood Loss: Estimated blood loss was minimal.
--- NOTE | 2021-01-14 09:59 | ROOR ---
Patient Name: Isauro Locke Procedure Date: 01/14/2021 9:15 AM Date of : 1940 Age: 80 Room: [facility] Gender: Male Note Status: Finalized Procedure: Colonoscopy Indications: Melena Providers: DO Marilyn Rogers MD: 2. Inpatient 2. Inpatient Requesting Provider: Medicines: Propofol per Anesthesia Complications: No immediate complications. Procedure: Pre-Anesthesia Assessment: - Prior to the procedure, a History and Physical was performed, and patient medications and allergies were reviewed. The patient is competent. The risks and benefits of the procedure and the sedation options and risks were discussed with the patient. All questions were answered and informed consent was obtained. Patient identification and proposed procedure were verified by the physician, the nurse, the anesthesiologist and the fire sprinkler service technician in the endoscopy suite. Mental Status Examination: alert and oriented. Airway Examination: normal oropharyngeal airway and neck mobility. Respiratory Examination: clear to auscultation. CV Examination: normal. Prophylactic Antibiotics: The patient does not require prophylactic antibiotics. Prior Anticoagulants: The patient has taken anticoagulant medication. ASA Grade Assessment: III - A patient with severe systemic disease. After reviewing the risks and benefits, the patient was deemed in satisfactory condition to undergo the procedure. The anesthesia plan was to use monitored anesthesia care (MAC). Immediately prior to administration of medications, the patient was re-assessed for adequacy to receive sedatives. The heart rate, respiratory rate, oxygen saturations, blood pressure, adequacy of pulmonary ventilation, and response to care were monitored throughout the procedure. The physical status of the patient was re-assessed after the procedure. The Colonoscope was introduced through the anus and advanced to the cecum, identified by appendiceal orifice and ileocecal valve. The colonoscopy was performed without difficulty. The patient tolerated the procedure well. Findings: Hematin (altered blood/[id number]-[id number]-[id number] material) was found in the entire colon. A less than 5 mm polyp was found in the sigmoid colon. The polyp was pedunculated. The polyp was removed with a hot snare. Resection and retrieval were complete. Estimated blood loss was minimal. Non-bleeding hemorrhoids were found during retroflexion. The hemorrhoids were Grade II (internal hemorrhoids that prolapse but reduce spontaneously). Impression: - Blood in the entire examined colon. - One less than 5 mm polyp in the sigmoid colon, removed with a hot snare. Resected and retrieved. - Non-bleeding hemorrhoids. Recommendation: - Return patient to [facility] for [facility] care. - Await pathology results. - Repeat colonoscopy in 3 - 5 years for surveillance based on pathology results. - Return to my office at appointment to be scheduled. - Refer to a brass instrument repair technician at appointment to be scheduled. - Referral to Dr. Vasquez for small bowel endoscopy. Procedure Code(s): --- Professional --- 65191, Colonoscopy, flexible; with removal of tumor(s), polyp(s), or other lesion(s) by snare technique Diagnosis Code(s): --- Professional --- K92.2, Gastrointestinal hemorrhage, unspecified K63.5, Polyp of colon K64.1, Second degree hemorrhoids K92.1, Melena (includes Hematochezia) CPT copyright 2019 [employer]. All rights reserved. The codes documented in this report are preliminary and upon rn psych review may be revised to meet current compliance requirements. Horacio Valdez DO 01/14/2021 9:59:07 AM Electronically signed by Horacio Bryden , DO Number of Addenda: 0 Note Initiated On: 01/14/2021 9:15 AM Estimated Blood Loss: Estimated blood loss was minimal.
[2021-01-14 10:25] VITALS: BP 116/51
[2021-01-14] MEDS: ATORVASTATIN 20 MG TAB PO SCH (11:23)
[2021-01-14] MEDS: TAMSULOSIN 0.4 MG CAP PO SCH (11:23)
[2021-01-14 11:25] VITALS: BP 101/66
[2021-01-14 12:25] VITALS: BP 105/69
[2021-01-14 14:00] VITALS: BP 102/63
[2021-01-14] MEDS ORDERED: OMEP40CA4 PO (15:04)
[2021-01-14] MEDS ORDERED: FERR1TAB8 PO (15:06)
[2021-01-14 17:07] LABS: INR 1.02; PROTHROMBIN TIME 13.6 SECONDS (12.5-14.3)
--- NOTE | 2021-02-05 13:42 | DS.PDOC ---
Discharge Summary General Date of Admission Jan 12, 2021 at 14:36 Date of Discharge 01/15/21 Discharge Summary PROCEDURES PERFORMED DURING STAY: [None]. ADMITTING DIAGNOSES: GI bleed/acute blood loss anemia Atrial fibrillation/Porcine mitral valve Acute diastolic CHF CAD s/p CABG DISCHARGE DIAGNOSES: GI bleed/acute blood loss anemia Atrial fibrillation/Porcine mitral valve Acute diastolic CHF CAD s/p CABG Gastritis COMPLICATIONS/CHIEF COMPLAINT: Acute Blood Loss Anemia,Dyspnea,Weakness.... HISTORY OF PRESENT ILLNESS: Patient is 80 years old male male with CAD s/p 2 vessel CABG, porcine mitral valve, and atrial fibrillation previously on warfarin who is here with worsening dyspnea with exertion, lightheadedness, and dark tarry stool. Patient was found to have hemoglobin of 5.9. HOSPITAL COURSE: During the hospital stay the following issue addressed GI bleed/acute blood loss anemia Patient received blood transfusion. Hemoglobin stable Continue Protonix IV and Carafate GI team did colonoscopy and EGD. Patient was found to have Gastritis, Atrial fibrillation/Porcine mitral valve Heart rate is under control Oral anticoagulation on hold Acute diastolic CHF Restarted Lasix Cardiac diet Is Os CAD s/p CABG Aspirin on hold Continue statin DISCHARGE MEDICATIONS: Please see below. ALLERGIES: Please see below. PHYSICAL EXAMINATION ON DISCHARGE: VITAL SIGNS: Please see below. GENERAL APPEARANCE: NAD HEENT: no scleral icterus, no JVD, EOMI CARDIOVASCULAR: S1S2 LUNGS: CTA ABDOMEN: soft & not tender w palpitation MUSCULOSKELETAL: no cyanosis, no swelling INTEGUMENT: no generalized pallor NEUROLOGICAL: cranial nerve function from 2-12 intact intact, follows commands, speech not dysarthric LABORATORY DATA: Please see below. PROGNOSIS: Fair ACTIVITY: [As tolerated]. DIET: Cardiac DISPOSITION: 01 Home, Self-Care. ITEMS TO FOLLOWUP ON ON OUTPATIENT: Follow-up with GI team in 1 week DISCHARGE CONDITION: [Stable]. TIME SPENT ON DISCHARGE:40minutes. Discharge Medications Scheduled Aspirin (Aspirin EC) 81 Mg Tablet.dr, 81 MG PO DAILY, (Reported) Atorvastatin Calcium (Atorvastatin Calcium) 20 Mg Tablet, 20 MG PO DAILY, (Reported) AFTERNOON Ferrous Sulfate (Ferrous Sulfate) 325 Mg Tablet, 325 MG PO BID Finasteride (Finasteride) 5 Mg Tablet, 5 MG PO DAILY, (Reported) Furosemide (Furosemide) 40 Mg Tablet, 40 MG PO DAILY, (Reported) Metoprolol Succinate (Metoprolol Succinate) 25 Mg Tab.er.24h, 25 MG PO DAILY, (Reported) Omeprazole (Omeprazole) 40 Mg Capsule.dr, 40 MG PO DAILY Tamsulosin HCl (Flomax) 0.4 Mg Cap, 0.4 MG PO DAILY, (Reported) Allergies Coded Allergies: No Known Allergies (Unverified , 12/27/16) HARPREET HANNAH DO Feb 05, 2021 13:42
== END 2021-01-14 17:05 | disposition home or self-care (01) | DRG 811 ==
LOC: M ED 10:42 → M ED INP 14:36 → ENRESERV 15:26 → M MS5PR 16:50
PROVIDERS: ADMIT Internal Medicine; ATTEND Internal Medicine
PROC: 30233N1 Transfusion of Nonautologous Red Blood Cells into Peripheral Vein, Percutaneous Approach (ICD-10-PCS; principal; 2021-01-12)
PROC: 0DB78ZX Excision of Stomach, Pylorus, Via Natural or Artificial Opening Endoscopic, Diagnostic (ICD-10-PCS; 2021-01-14)
PROC: 0DBN8ZX Excision of Sigmoid Colon, Via Natural or Artificial Opening Endoscopic, Diagnostic (ICD-10-PCS; 2021-01-14)
PROC: 0DB48ZX Excision of Esophagogastric Junction, Via Natural or Artificial Opening Endoscopic, Diagnostic (ICD-10-PCS; 2021-01-14)
DX: D62 Acute posthemorrhagic anemia (principal); K29.71 Gastritis, unspecified, with bleeding; I50.32 Chronic diastolic (congestive) heart failure; D68.32 Hemorrhagic disorder due to extrinsic circulating anticoagulants; I48.19 Other persistent atrial fibrillation; I25.10 Atherosclerotic heart disease of native coronary artery without angina pectoris; Z79.82 Long term (current) use of aspirin; Z79.899 Other long term (current) drug therapy; Z95.5 Presence of coronary angioplasty implant and graft; I11.0 Hypertensive heart disease with heart failure; E78.5 Hyperlipidemia, unspecified; N40.0 Benign prostatic hyperplasia without lower urinary tract symptoms; Z87.891 Personal history of nicotine dependence; Z95.3 Presence of xenogenic heart valve

== ENCOUNTER → 2022-10-29 | Outpatient (REF) | payer MEDICARE, BC ==
[~2022-10-29] MED LIST changes: +ASPI81TA26 PO; +FERR1TAB8 PO; +OMEP40CA4 PO
[2022-10-29 14:06] LABS: APPEARANCE, URINE CLEAR (CLEAR); BACTERIA, URINE AUTO 1+ (NEGATIVE); BILIRUBIN, URINE AUTO NEGATIVE (NEGATIVE); BLOOD, URINE BLOOD 2+ (NEGATIVE); COLOR, URINE YELLOW (YELLOW); GLUCOSE, URINE (UA) AUTO NEGATIVE (NEGATIVE); KETONE, URINE AUTO NEGATIVE (NEGATIVE); LEUKOCYTE ESTERASE, URINE AUTO NEGATIVE (NEGATIVE); NITRITE, URINE AUTO NEGATIVE (NEGATIVE); PROTEIN, URINE AUTO NEGATIVE (NEGATIVE); RBC, URINE AUTO 1 /HPF (0-3); SPECIFIC GRAVITY URINE AUTO 1.005 (1.002-1.035); SQUAMOUS EPITHELIAL CELL UR AU 0 /HPF (0-6); UROBILINOGEN, URINE AUTO 0.2 mg/dL (0.0-2.0); WBC, URINE AUTO 0 /HPF (0-3)
== END ==
LOC: M SMT 12:43
PROVIDERS: ATTEND Urology
DX: R31.0 Gross hematuria (principal)

== ENCOUNTER → 2024-05-18 | Outpatient (REF) | payer MEDICARE ==
[2024-05-18 16:03] LABS: APPEARANCE, URINE CLEAR (CLEAR); BACTERIA, URINE AUTO NEGATIVE (NEGATIVE); BILIRUBIN, URINE AUTO NEGATIVE (NEGATIVE); BLOOD, URINE BLOOD NEGATIVE (NEGATIVE); COLOR, URINE YELLOW (YELLOW); GLUCOSE, URINE (UA) AUTO NEGATIVE (NEGATIVE); KETONE, URINE AUTO NEGATIVE (NEGATIVE); LEUKOCYTE ESTERASE, URINE AUTO NEGATIVE (NEGATIVE); MUCUS, URINE SMALL (NEGATIVE); NITRITE, URINE AUTO NEGATIVE (NEGATIVE); PROTEIN, URINE AUTO NEGATIVE (NEGATIVE); RBC, URINE AUTO 0 /HPF (0-3); SPECIFIC GRAVITY URINE AUTO 1.009 (1.002-1.035); SQUAMOUS EPITHELIAL CELL UR AU 0 /HPF (0-6); UROBILINOGEN, URINE AUTO 0.2 mg/dL (0.0-2.0); WBC, URINE AUTO 0 /HPF (0-3)
== END ==
LOC: M SMT 14:54
PROVIDERS: ATTEND Urology
DX: N40.0 Benign prostatic hyperplasia without lower urinary tract symptoms (principal)

== ENCOUNTER → 2025-05-23 | Outpatient (REF) | payer MEDICARE ==
[~2025-05-23] MED LIST changes: -FLOM0.4C39 PO; +TAMS-18 PO
[2025-05-23 18:20] LABS: APPEARANCE, URINE CLEAR (CLEAR); BACTERIA, URINE AUTO NEGATIVE (NEGATIVE); BILIRUBIN, URINE AUTO NEGATIVE (NEGATIVE); BLOOD, URINE BLOOD NEGATIVE (NEGATIVE); GLUCOSE, URINE (UA) AUTO 3+ mg/dL (NEGATIVE); KETONE, URINE AUTO NEGATIVE (NEGATIVE); LEUKOCYTE ESTERASE, URINE AUTO NEGATIVE (NEGATIVE); NITRITE, URINE AUTO NEGATIVE (NEGATIVE); PROTEIN, URINE AUTO NEGATIVE (NEGATIVE); RBC, URINE AUTO 0 /HPF (0-3); SPECIFIC GRAVITY URINE AUTO 1.003 (1.002-1.035); SQUAMOUS EPITHELIAL CELL UR AU 0 /HPF (0-6); UROBILINOGEN, URINE AUTO 0.2 mg/dL (0.0-2.0); WBC, URINE AUTO 0 /HPF (0-3)
== END ==
LOC: M SMT 17:19
PROVIDERS: ATTEND Nurse Practitioner Family
DX: R31.0 Gross hematuria (principal)